=== PATIENT | male | born 1960 | race Caucasian/White ===

== ENCOUNTER 2016-07-22 07:48 | Observation (INO) | payer OTHER ==
--- NOTE | 2016-07-22 08:15 | CPEKG ---
Heart Rate: 62 RR Interval: 968 P-R Interval: 148 QRSD Interval: 94 QT Interval: 404 QTC Interval: 411 P [place]: 41 QRS [place]: 42 T Wave [place]: 49 EKG Severity - NORMAL ECG - EKG Impression: SINUS RHYTHM Electronically Signed By: Jett Chao 22-Jul-2016 10:53:35
--- NOTE | 2016-07-22 08:27 | EDPHY ---
H & P Time Seen by Provider: 07/22/16 08:12 HPI/ROS: Chief complaint. Chest pain HPI. 55-year-old male with history of known coronary artery disease in left anterior descending artery stent presents with 4 days of burping and substernal burning type discomfort. Maybe radiates to the left scapula. Some diarrhea. It has been better with some Pepto-Bismol. However his symptoms began with swimming 4 days ago and then resolved and then worse again with exercise 2 days ago. He had a large meal last night. This morning at 4:00 a.m. he states developed again the substernal burning some nausea and diaphoresis. No shortness of breath. No fever. No leg symptoms. Symptoms are similar to his previous coronary artery disease though not as severe. He continues to have some chest discomfort. He took aspirin this morning. In June 2012 the patient had an LAD recent stent. He had a normal nuclear stress test in 2016 and his next nuclear stress test is coming up. ROS Constitutional. no fever/chills, no weakness Eyes. no problems with vision ENT. no sore throat, no nasal drainage Cardiovascular. Chest burning Respiratory. no shortness of breath, no cough Abdominal. Some epigastric abdominal pain and nausea and diarrhea. . no problems urinating MS. no calf pain/swelling, no neck/back pain, no joint pain Skin. no rash Lymph. no swollen glands Neuro. no headache, no dizziness, no difficulty walking or with speech Past Medical/Surgical History: Coronary artery disease with stent Social History: , nonsmoker, no alcohol Smoking Status: Never smoked Physical Exam: General Appearance: Alert well-developed male mild distress vital signs are stable Eyes: Pupils equal and round no pallor or injection. ENT, Mouth: Mucous membranes are moist. Respiratory: There are no retractions, lungs are clear to auscultation. Cardiovascular: Regular rate and rhythm. Gastrointestinal: Abdomen is soft and nontender, no masses, bowel sounds normal. Neurological: Awake and alert, sensory and motor exams grossly normal. Skin: Warm and dry, no rashes. Musculoskeletal: Neck is supple nontender. Extremities symmetrical, full range of motion. Psychiatric: Patient is oriented X 3, there is no agitation. Constitutional: Initial Vital Signs Temperature (C) 36.5 C 07/22/16 07:56 Heart Rate 67 07/22/16 07:56 Respiratory Rate 16 07/22/16 07:56 Blood Pressure 133/97 H 07/22/16 07:56 O2 Sat (%) 95 07/22/16 07:56 O2 Delivery Mode Room Air Allergies/Adverse Reactions: No Known Allergies Allergy (Unverified 08/03/14 10:37) Home Medications: Medication Instructions Recorded Allopurinol [Allopurinol 100 MG 100 mg PO DAILY 06/18/12 (RX)] Aspirin [Aspirin 81mg (OTC)] 81 mg PO DAILY 06/18/12 Atorvastatin Calcium 08/03/14 Medical Decision Making - Diagnostics EKG Interpretation: EKG interpreted by me shows normal sinus rhythm with normal interval and axis. QRS is normal there is no significant ST elevation or depression. No arrhythmia. The rate is 62 Imaging Results: Imaging Impressions Chest X-Ray 07/22/16 08:50 Impression: Negative. One-view chest x-ray interpreted by me is normal Procedures: IV normal saline, monitor ED Course/Re-evaluation: Re-evaluation at 10:15 a.m. and the patient and his and I discussed laboratory EKG chest x-ray evaluation. We discussed treatment plan including recommendation for admission. They expressed understanding and agreement I consulted and discussed the case with Dr. blackwell, hospitalist, who will see the patient in the hospital I consulted and discussed the case with Dr. Moulton, cardiology, who will also evaluate the patient in the hospital today Differential Diagnosis: Patient has had GI symptoms as presentation for previous complete LAD occlusion. He has similar symptoms today that are precipitated or worse with exertion. Workup is normal. I considered GI etiology including pancreatitis or gallbladder disease. These appear to be normal. I have considered also acute coronary syndrome. - Data Points Laboratory Results: Laboratory Results 07/22/16 08:25 07/22/16 08:25 07/22/16 07/22/16 08:25 08:25 WBC 7.50 10^3/uL 10^3/uL (3.80-9.50) RBC 4.77 10^6/uL 10^6/uL (4.40-6.38) Hgb 15.9 g/dL g/dL (13.7-17.5) Hct 44.8 % % (40.0-51.0) MCV 93.9 fL fL (81.5-99.8) MCH 33.3 pg pg (27.9-34.1) MCHC 35.5 g/dL g/dL (32.4-36.7) RDW 12.5 % % (11.5-15.2) Plt Count 203 10^3/uL 10^3/uL (150-400) MPV 10.0 fL fL (8.7-11.7) Neut % (Auto) 64.9 % % (39.3-74.2) Lymph % (Auto) 24.9 % % (15.0-45.0) [place] % (Auto) 6.8 % % (4.5-13.0) Eos % (Auto) 2.7 % % (0.6-7.6) Baso % (Auto) 0.4 % % (0.3-1.7) Nucleat RBC Rel Count 0.0 % % (0.0-0.2) Absolute Neuts (auto) 4.87 10^3/uL 10^3/uL (1.70-6.50) Absolute Lymphs (auto) 1.87 10^3/uL 10^3/uL (1.00-3.00) Absolute Monos (auto) 0.51 10^3/uL 10^3/uL (0.30-0.80) Absolute Eos (auto) 0.20 10^3/uL 10^3/uL (0.03-0.40) Absolute Basos (auto) 0.03 10^3/uL 10^3/uL (0.02-0.10) Absolute Nucleated RBC 0.00 10^3/uL 10^3/uL (0-0.01) Immature Gran % 0.3 % % (0.0-1.1) Immature Gran # 0.02 10^3/uL 10^3/uL (0.00-0.10) Sodium 142 mEq/L mEq/L (134-144) Potassium 4.2 mEq/L mEq/L (3.5-5.2) Chloride 108 mEq/L mEq/L (97-110) Carbon Dioxide 25 mEq/l mEq/l (22-31) Anion Gap 9 mEq/L mEq/L (8-16) BUN 12 mg/dL mg/dL (7-23) Creatinine 0.7 mg/dL mg/dL (0.7-1.3) Estimated GFR > 60 Glucose 90 mg/dL mg/dL (70-100) Calcium 9.1 mg/dL mg/dL (8.5-10.4) Total Bilirubin 0.7 mg/dL mg/dL (0.1-1.4) Conjugated Bilirubin 0.4 mg/dL mg/dL (0.0-0.5) Unconjugated Bilirubin 0.3 mg/dL mg/dL (0.0-1.1) AST 22 IU/L IU/L (17-59) ALT 33 IU/L IU/L (21-72) Alkaline Phosphatase 57 IU/L IU/L (38-126) Troponin I < 0.012 ng/mL ng/mL (0-0.034) Total Protein 6.5 g/dL g/dL (6.3-8.2) Albumin 4.1 g/dL g/dL (3.5-5.0) Lipase 68.0 IU/L IU/L (23-300) Medications Given: Discontinued Medications Al Hydroxide/Mg Hydroxide (Maalox Susp) 30 ml PO ONCE ONE Stop: 07/22/16 08:51 Last Admin: 07/22/16 09:04 Dose: 30 ml Hyoscyamine Sulfate (Levsin, Hyomax-Sl) 0.25 mg PO ONCE ONE Stop: 07/22/16 08:51 Last Admin: 07/22/16 09:04 Dose: 0.25 mg Lidocaine (Lidocaine 2% Viscous) 15 ml PO ONCE ONE Stop: 07/22/16 08:51 Last Admin: 07/22/16 09:05 Dose: 15 ml Departure - Departure Disposition: [facility] Acute Clinical Impression: Chest pain Qualifiers: Chest pain type: unspecified Qualified Code(s): R07.9 - Chest pain, unspecified Condition: Fair Referrals: Rad Alvares MD [Primary Care Provider] - As per Instructions
[2016-07-22] MEDS ORDERED: HYOSCYAMINE SULFATE 0.125 MG TAB PO ONE (08:50)
[2016-07-22] MEDS ORDERED: LIDOCAINE 2% VISCOUS 15 ML UDCUP PO ONE (08:50)
[2016-07-22] MEDS ORDERED: MAG HYDROX/AL HYDROX/SIMETH 30 ML UDCUP PO ONE (08:50)
[2016-07-22 09:02] LABS: % IMMATURE GRANULYOCYTES 0.3 % (0.0-1.1); ABSOLUTE IMMATURE GRANULOCYTES 0.02 10^3/uL (0.00-0.10); ADD DIFF? NO; ADD MORPH? NO; ADD SCAN? NO; ATYPICAL LYMPHOCYTE FLAG 0 (0-99); FRAGMENT RBC FLAG 0 (0-99); HEMATOCRIT 44.8 % (40.0-51.0); HEMOGLOBIN 15.9 g/dL (13.7-17.5); LEFT SHIFT FLG 0 (0-99); LIPEMIA HEMOLYSIS FLAG 90 (0-99); MEAN CELL HEMOGLOBIN 33.3 pg (27.9-34.1); MEAN CELL HEMOGLOBIN CONCENTR. 35.5 g/dL (32.4-36.7); MEAN CELL VOLUME 93.9 fL (81.5-99.8); PLATELET CLUMPS FLAG 10 (0-99); PLATELET COUNT 203 10^3/uL (150-400); RED BLOOD CELL COUNT 4.77 10^6/uL (4.40-6.38); RED CELL DISTRIBUTION WIDTH 12.5 % (11.5-15.2)
[2016-07-22 09:06] LABS: ALANINE AMINOTRANSFERASE 33 IU/L (21-72); ALBUMIN 4.1 g/dL (3.5-5.0); ALKALINE PHOSPHATASE 57 IU/L (38-126); ANION GAP 9 mEq/L (8-16); ASPARTATE AMINOTRANSFERASE 22 IU/L (17-59); BILIRUBIN,TOTAL 0.7 mg/dL (0.1-1.4); BILIRUBIN-CONJUGATED 0.4 mg/dL (0.0-0.5); BILIRUBIN-UNCONJUGATED 0.3 mg/dL (0.0-1.1); CALCIUM 9.1 mg/dL (8.5-10.4); CARBON DIOXIDE 25 mEq/l (22-31); CHLORIDE 108 mEq/L (97-110); CREATININE 0.7 mg/dL (0.7-1.3); GLOMERULAR FILTRATION RATE > 60; GLUCOSE 90 mg/dL (70-100); POTASSIUM 4.2 mEq/L (3.5-5.2); SODIUM 142 mEq/L (134-144); TOTAL PROTEIN 6.5 g/dL (6.3-8.2)
[2016-07-22 09:18] LABS: TROPONIN I < 0.012 ng/mL (0-0.034)
--- NOTE | 2016-07-22 13:45 | GHP ---
[f rep st] HISTORY AND PHYSICAL DATE OF ADMISSION: 07/22/2016 CHIEF COMPLAINT: Epigastric pain. HISTORY OF PRESENT ILLNESS: The patient is a 55-year-old male with history of CAD with a PCI to LAD in 2012, who is being admitted for epigastric discomfort similar to his previous anginal symptoms. He reports onset on Sunday. He had gone on a swim and at the end of he noted some of this epigastric burning. He also noted that eating had made it worse that day. Within 15-20 minutes of completing his meal, he had diarrhea. He noted as a gassy, somewhat watery and loose bowel movement. He took Pepto-Bismol with some improvement. On Sunday , he still had some of this discomfort. On , he was able to exercise, and on Sunday, which was yesterday, he felt completely better. However, this morning at 4 a.m. he had woken up to use the bathroom and noted the same discomfort in his epigastrium. This is associated with burping. He denies any dyspnea or nausea, diaphoresis. Over the past few months, he feels like he has had a GI illness and has been searching on the Internet for possible etiologies. He has been concerned that he has a pancreatic issue due to this discomfort and burping he has been having. PAST MEDICAL HISTORY: 1. CAD with a PCI to LAD in 06/21/2012. He had a 90% focal lesion in the midportion of his LAD. He had single-vessel disease. This was treated with PTCA and stenting with a 4.0 x 20 mm PROMUS drug-eluting stent. 2. Gout. 3. Dyslipidemia. 4. GERD. PAST SURGICAL HISTORY: Vasectomy. OUTPATIENT MEDICATIONS: Include aspirin, allopurinol and atorvastatin. Please see med reconciliation for complete details. ALLERGIES: No known drug allergies. FAMILY HISTORY: Father with diabetes. Mother with hypertension. SOCIAL HISTORY: Patient is . 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 He is a never smoker. He reports occasional alcohol intake. He has 2 children. REVIEW OF SYSTEMS: As per HPI, a complete 10-point review of systems was obtained and is negative except for what is dictated. PHYSICAL EXAM: VITAL SIGNS: BP of 163/110, heart rate 64, respirations 18, O2 saturation 96% on room air, temp of 97.9. GENERAL: He is a very pleasant male in no apparent distress. HEENT: Head is normocephalic, atraumatic. Eyes are MIGUELITO without scleral icterus. HEART: Regular rate and rhythm. LUNGS: Clear to auscultation bilaterally. ABDOMEN: Tender on palpation with normoactive bowel sounds. SKIN: Warm and dry. MUSCULOSKELETAL: No gross deformities detected. PSYCH: Normal mood and affect for given situation. NEURO: No focal deficits detected. LABORATORY STUDIES: CBC with WBC 7.5, hemoglobin 15.9, hematocrit 44.8, platelet count of 203. BMP with sodium 142, potassium 4.2, chloride 25, BUN 12 , creatinine 0.7, glucose 90. Troponin less than 0.012. ALT 33, alkaline phosphatase 57, albumin 4.1, total protein 6.5, lipase 68. A 12-lead ECG personally interpreted shows normal sinus rhythm. Chest x-ray shows nothing remarkable. I spoke about patient's care with Dr. Chao. IMPRESSION AND PLAN: The patient is a 55-year-old male who presents with atypical chest pain. 1. Chest pain. He presented to ED as he was concerned, given his previous atypical presentation, that he was having a recurrent acute coronary syndrome. He has ruled out thus far with enzymes and EKG. We will plan to cycle cardiac enzymes. He had a stress echo that finally detected his abnormality back in 2012 with apical ischemia. We will obtain an echo transthoracically to evaluate for wall motion abnormality given his current symptoms are present even at rest. However, likely this is GI in nature. We will order Carafate. We will also order b.i.d. Protonix. Given his postprandial symptoms, we will rule out gallbladder disease with a gallbladder ultrasound. 2. Dyslipidemia. His home atorvastatin will be continued. We will check his lipids. 3. Deep venous thrombosis prophylaxis. He is considered [id number] risk. We will order subcu enoxaparin starting tomorrow. 4. Diet. He will be put on a cardiac diet. 5. Disposition. He is being admitted to observation status. If any of his tests are abnormal warranting further workup or treatment, we will transition him to inpatient status. /[id number]/MODL MTDD
[2016-07-22 14:55] LABS: CREATINE KINASE-MB FRACTION 0.57 ng/mL (0-3.19); TROPONIN I < 0.012 ng/mL (0-0.034)
[2016-07-22] MEDS: PANTOPRAZOLE SODIUM 40 MG TAB PO SCH ×2 (15:13→20:21)
[2016-07-22] MEDS: SUCRALFATE 1 GM TAB PO SCH ×2 (17:44→21:53)
[2016-07-22 18:07] LABS: CREATINE KINASE-MB FRACTION 0.76 ng/mL (0-3.19); TROPONIN I < 0.012 ng/mL (0-0.034)
[2016-07-22] MEDS ORDERED: ATORVASTATIN CALCIUM 10 MG TAB PO SCH (21:00)
[2016-07-22 21:06] LABS: CREATINE KINASE-MB FRACTION 0.66 ng/mL (0-3.19); TROPONIN I < 0.012 ng/mL (0-0.034)
[2016-07-23 04:47] LABS: CHOLESTEROL 108 mg/dL (140-220); CHOLESTEROL/HDL RATIO 2.84 RATIO (1.00-4.97); HIGH DENSITY LIPOPROTEIN 38 mg/dL (40-65); LDL/HDL RATIO 1.18 RATIO (1.00-3.64); LOW DENSITY LIPOPROTEIN 45 mg/dL (80-100); NON-HIGH DENSITY LIPOPROTEIN 70 mg/dL (90-129); TRIGLYCERIDE 127 mg/dL (40-150); VERY LOW DENSITY LIPOPROTEINS 25 mg/dL (8-25)
[2016-07-23] MEDS: SUCRALFATE 1 GM TAB PO SCH ×2 (06:05→10:30)
--- NOTE | 2016-07-23 06:43 | CPEKG ---
Heart Rate: 60 RR Interval: 1000 P-R Interval: 132 QRSD Interval: 102 QT Interval: 424 QTC Interval: 424 P [place]: 31 QRS [place]: 4 T Wave [place]: 9 EKG Severity - BORDERLINE ECG - EKG Impression: SINUS RHYTHM EKG Impression: BORDERLINE INFERIOR Q WAVES Electronically Signed By: Rony Aponte 23-Jul-2016 08:45:53
[2016-07-23] MEDS ORDERED: ENOXAPARIN 40 MG/0.4 ML SYR SC SCH (09:00)
[2016-07-23] MEDS ORDERED: ASPIRIN EC 81 MG TAB PO SCH (09:00)
[2016-07-23] MEDS ORDERED: ALLOPURINOL 100 MG TAB PO SCH (09:00)
[2016-07-23 09:52] VITALS: TEMP 97.9
--- NOTE | 2016-07-23 10:02 | PDCARST ---
CAR Stress Test Results Type of Stress Test: Exercise Treadmill Test with Nuclear Imaging Indication: Chest pain in a 55 y/o M w/ history of CAD; PCI of the LAD in June of 2012. Description of Procedure: Total exercise time 10 minutes of the Zeke protocol reaching 106% MPHR. No chest discomfort during exercise. No ischemic ST-T wave abnormalities at baseline or at peak exercise. Impression: 1) Normal exercise tolerance for age. 2) No clinical or electrocardiographic evidence of stress-induced myocardial ischemia. 3) Nuclear perfusion images pending. Conclusion: 1) Normal exercise treadmill test. 2) Nuclear perfusion images pending.
[2016-07-23] MEDS: PANTOPRAZOLE SODIUM 40 MG TAB PO SCH (10:30)
[2016-07-23 11:00] VITALS: BP 147/96; PULSE 94; RESP 18; O2SAT 98
--- NOTE | 2016-07-23 14:53 | GDS ---
[f rep st] DISCHARGE SUMMARY CHIEF COMPLAINT: Epigastric pain and burping. DISCHARGE DIAGNOSES: 1. Coronary artery disease. 2. Gout. 3. Dyslipidemia. 4. Gastroesophageal reflux disease. HISTORY OF PRESENT ILLNESS: A 55-year-old male with known history of coronary artery disease, statu s post PCI to the LAD in 2012, who presents with complaints of epigastric tightness, and burping wit h exertion. For details of patient's initial presentation, please see the history and physical date d 07/22/2016. CONSULTATIVE SERVICES: Include Cardiology. PROCEDURES: Include treadmill nuclear imaging, which was normal. HOSPITAL COURSE: By issue: 1. Epigastric pain/burping. The patient has known history of coronary artery disease, was felt to be high risk, so was admitted, ruled out with serial troponins, EKGs overnight and [facility] for ultimate nuclear imaging. The patient's stress testing was normal. 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 2. Coronary artery disease. Patient will be continued on his chronic medications. 3. Gout. The patient is being continued on his allopurinol. 4. Dyslipidemia. The patient is being continued on his lipid therapy. PENDING STUDIES: At the time of this dictation are none. FOLLOWUP APPOINTMENTS: Include with Dr. Pederson in the next 4 weeks for FAA, paperwork, and testin g. MED RECONCILIATION: Please reference med rec printed on 07/23/2016. TIME SPENT: I spent greater than 30 minutes in the planning and coordination of this discharge. /[id number]/MODL
== END 2016-07-23 12:10 | disposition home or self-care (01) ==
LOC: F2W 12:12
PROVIDERS: ADMIT Hospitalist; ATTEND Hospitalist
DX: I25.10 Atherosclerotic heart disease of native coronary artery without angina pectoris (principal); R07.9 Chest pain, unspecified; K21.9 Gastro-esophageal reflux disease without esophagitis; M10.9 Gout, unspecified; E78.5 Hyperlipidemia, unspecified; Z95.5 Presence of coronary angioplasty implant and graft; Z79.82 Long term (current) use of aspirin
CPT/HCPCS: 71010; 76705; 78451; 93005; 93017; A9500; G0378; J1650

== ENCOUNTER → 2016-09-14 | Outpatient (CLI) | payer OTHER | LOC: FIMAGING 09:09 | PROVIDERS: ATTEND Internal Medicine Gastroenterology ==